=== PATIENT | female | born 1960 | race Caucasian/White ===

== ENCOUNTER 2017-05-20 17:47 | Emergency (ER) | payer OTHER, BC ==
[~2017-05-20] VITALS: Ht 177.8 cm; Wt 89.0 kg
[2017-05-20] MEDS ORDERED: NORCO 5/3251 TABLET PO (20:31)
[2017-05-20] MEDS ORDERED: NAPROSYN500 MG PO (20:31)
[2017-05-20 20:56] VITALS: BP 140/78
== END 2017-05-20 20:57 | disposition home or self-care (01) ==
LOC: EME 17:47
DX: S16.1XXA Strain of muscle, fascia and tendon at neck level, initial encounter (principal); S80.11XA Contusion of right lower leg, initial encounter; S00.83XA Contusion of other part of head, initial encounter; W11.XXXA Fall on and from ladder, initial encounter; Y93.89 Activity, other specified; Y99.0 Civilian activity done for income or pay; F17.200 Nicotine dependence, unspecified, uncomplicated
CPT/HCPCS: 70450; 72125; 73564; 73630; 99281; 99284